=== PATIENT | male | born 1975 | race Hispanic/Latino ===

== ENCOUNTER 2017-09-13 22:44 | Emergency (ER) | payer OTHER ==
[2017-09-13 23:30] LABS: BUN/Creatinine Ratio 8; Blood Urea Nitrogen 5 mg/dL (9-20); Calcium 9.6 mg/dL (8.4-10.2); Hemolysis Index 8
[2017-09-13 23:38] LABS: Basophils # (Auto) 0.2 K/mm3 (0.0-0.1); Basophils % (Auto) 2.3 % (0.0-1.8); Eosinophils # (Auto) 0.3 K/mm3 (0.0-0.4); Eosinophils % (Auto) 3.9 % (0.0-4.3); Hematocrit 45.8 % (35.5-45.6); Hemoglobin 15.8 gm/dl (11.8-15.2); Lymphocytes # (Auto) 2.3 K/mm3 (1.2-5.4); Lymphocytes % (Auto) 28.9 % (13.4-35.0); Mean Corpuscular HGB Conc 34 % (32-34); Mean Corpuscular Hemoglobin 34 pg (28-32); Mean Corpuscular Volume 98 fl (84-94); Monocytes # (Auto) 0.4 K/mm3 (0.0-0.8); Monocytes % (Auto) 5.6 % (0.0-7.3); Platelet Count 249 K/mm3 (140-440); Red Blood Count 4.68 M/mm3 (3.65-5.03); Red Cell Distribution Width 14.4 % (13.2-15.2)
[2017-09-14 00:13] LABS: Bilirubin,Urine NEG (Negative); Blood,Urine SM (Negative); Color,Urine Yellow (Yellow); Mucus,Urine FEW /HPF; Protein,Urine <15 mg/dL mg/dL (Negative); Urobilinogen,Urine < 2.0 mg/dL (<2.0); WBC,Urine < 1.0 /HPF (0.0-6.0)
[2017-09-14 00:18] LABS: Amphetamine Screen,Urine PRESUMPTIVE NEGATIVE; Benzodiazepines Screen,Urine PRESUMPTIVE NEGATIVE; Cannabinoid Screen,Urine PRESUMPTIVE NEGATIVE; Cocaine Screen,Urine PRESUMPTIVE NEGATIVE; Methadone Screen,Urine PRESUMPTIVE NEGATIVE; Opiate Screen,Urine PRESUMPTIVE NEGATIVE
[2017-09-14] MEDS ORDERED: VITAMIN B-1 100 MG, FOLVITE 1 MG, INFUVITE 10 ML in NACL 0.9% 1000 ML 1,000 ML IV ONE (06:20)
[2017-09-14] MEDS ORDERED: LIBRIUM PO PRN (07:01)
[2017-09-14] MEDS ORDERED: ATIVAN IV PRN ×2 (07:01)
--- NOTE | 2017-09-14 07:11 | Emergency Department Report ---
HPI - General Chief Complaint: Alcohol Time Seen by Provider: 09/14/17 06:20 - HPI HPI: 42-year-old male presents to the emergency department for a medical clearance for alcohol detox from [facility]. He had his went to [facility] yesterday but they were told to come here for medical clearance. The patient has a history of alcoholism. He has never tried an inpatient detox before but says that he has tried a 3-4 day detox a few times in the past without much relief. His last drink was 4:00 yesterday. He says he does feel like he is having withdrawal symptoms including shakes/tremors, dizziness. He has a past medical history of hypertension. He denies any significant seizure history but did say that he had one seizure about 2 weeks ago with an unknown etiology. He is not currently having a primary care physician. Lately he has been on some pain medication for an injury at work. He is also on some antibiotics for an alleged infected tooth. He denies any suicidal or homicidal ideations or any hallucinations. ED Past Medical Hx - Past Medical History Hx Hypertension: Yes Hx Seizures: (1 SZ 2 weeks ago.) - Surgical History Past Surgical History?: No - Social History Smoking Status: Current Every Day Smoker Substance Use Type: Alcohol - Medications Home Medications: Home Medications Medication Instructions Recorded Confirmed Last Taken Type Sulfamethoxazole/Trimethoprim 1 each PO BID #14 tablet 09/14/17 Unknown Rx [Bactrim DS TAB] ED Review of Systems ROS: Stated complaint: MEDICAL CLEARANCE Other details as noted in HPI Comment: All other systems reviewed and negative Constitutional: denies: chills, fever Eyes: denies: eye pain, eye discharge, vision change ENT: dental pain. denies: throat pain Respiratory: denies: cough, shortness of breath, wheezing Cardiovascular: denies: chest pain, palpitations Gastrointestinal: nausea. denies: abdominal pain, diarrhea Genitourinary: denies: urgency, dysuria Musculoskeletal: denies: back pain, joint swelling, arthralgia Skin: denies: rash, lesions Neurological: other (dizziness). denies: headache Physical Exam - Physical Exam Vital Signs: Vital Signs 09/13/17 09/14/17 09/14/17 22:52 05:13 05:16 Temperature 98.5 F Pulse Rate 120 H 101 H 104 H Respiratory 20 10 L 16 Rate Blood Pressure 121/86 O2 Sat by Pulse 95 97 98 Oximetry 09/14/17 09/14/17 09/14/17 05:30 05:32 05:33 Temperature 98 F Pulse Rate 97 H Respiratory 10 L 18 Rate Blood Pressure 129/87 O2 Sat by Pulse 98 Oximetry 09/14/17 09/14/17 09/14/17 05:46 06:00 06:16 Temperature Pulse Rate 92 H 101 H 93 H Respiratory 10 L 11 L 11 L Rate Blood Pressure 129/87 129/87 129/87 O2 Sat by Pulse 97 97 97 Oximetry 09/14/17 09/14/17 06:30 06:47 Temperature 98 F Pulse Rate 95 H Respiratory 12 Rate Blood Pressure 129/87 O2 Sat by Pulse 96 Oximetry Physical Exam: GENERAL: The patient is well-developed well-nourished. HENT: Normocephalic. Atraumatic. Patient has moist mucous membranes. EYES: Extraocular motions are intact. Pupils equal reactive to light bilaterally. NECK: Supple. Trachea is midline. CHEST/LUNGS: Clear to auscultation. There is no respiratory distress noted. HEART/CARDIOVASCULAR: Regular. There is mild tachycardia. There is no murmur. ABDOMEN: Abdomen is soft, nontender. Patient has normal bowel sounds. There is no abdominal distention. SKIN: Skin is warm and dry. NEURO: The patient is awake, alert, and oriented. The patient is cooperative. The patient has no focal neurologic deficits. The patient has normal speech. MUSCULOSKELETAL: There is no tenderness or deformity. There is no limitation range of motion. There is no evidence of acute injury. ED Course Vital Signs 09/13/17 09/14/17 09/14/17 22:52 05:13 05:16 Temperature 98.5 F Pulse Rate 120 H 101 H 104 H Respiratory 20 10 L 16 Rate Blood Pressure 121/86 O2 Sat by Pulse 95 97 98 Oximetry 09/14/17 09/14/17 09/14/17 05:30 05:32 05:33 Temperature 98 F Pulse Rate 97 H Respiratory 10 L 18 Rate Blood Pressure 129/87 O2 Sat by Pulse 98 Oximetry 09/14/17 09/14/17 09/14/17 05:46 06:00 06:16 Temperature Pulse Rate 92 H 101 H 93 H Respiratory 10 L 11 L 11 L Rate Blood Pressure 129/87 129/87 129/87 O2 Sat by Pulse 97 97 97 Oximetry 09/14/17 09/14/17 06:30 06:47 Temperature 98 F Pulse Rate 95 H Respiratory 12 Rate Blood Pressure 129/87 O2 Sat by Pulse 96 Oximetry ED Medical Decision Making - Lab Data Result diagrams: 09/13/17 23:04 09/13/17 23:04 - Medical Decision Making Patient is here for medical clearance for alcohol rehabilitation and detox. He has some mild tachycardia and may be starting to have some level of withdrawals but otherwise has been calm and cooperative and stable throughout his ED course this far. He developed a small distal upper extremity tremor bilaterally and was given some Librium. The rest of his labs and unremarkable. He came in at a blood alcohol level of 0.24 at 11 PM last night and should be closer to a sober limit at this point. The psych blueprint machine operator Matt, called [facility], and they had accepted the patient and are waiting for his arrival. He is medically cleared for alcohol detox and rehabilitation. - Differential Diagnosis alcohol intoxication, alcohol withdrawal Critical Care Time: No Critical care attestation.: If time is entered above; I have spent that time in minutes in the direct care of this critically ill patient, excluding procedure time. ED Disposition Clinical Impression: Alcohol abuse, Medical clearance for psychiatric admission Alcohol intoxication Qualifiers: Complication of substance-induced condition: uncomplicated Qualified Code(s): F10.920 - Alcohol use, unspecified with intoxication, uncomplicated Alcohol withdrawal Qualifiers: Complication of substance-induced condition: uncomplicated Qualified Code(s): F10.230 - Alcohol dependence with withdrawal, uncomplicated Disposition: [id number]/[id number] PSY HOSP/PSY UNIT Is pt being admited?: No Condition: Stable Instructions: Alcohol Intoxication (ED), Abuse of Alcohol (ED), Medical Clearance for Substance Abuse Treatment (ED) Additional Instructions: Please go directly to [facility], who is expecting you for inpatient alcohol detox / rehab. See a Primary care physician once you are able to do so. Return to the Emergency Department with any worsening of your symptoms or any acute distress. Prescriptions: Sulfamethoxazole/Trimethoprim [Bactrim DS TAB] 1 each PO BID #14 tablet Referrals: PRIMARY CARE, [Primary Care Provider] - [facility] Time of Disposition: 09:50
[2017-09-14] MEDS ORDERED: TORADOL IV ONE (07:15)
[2017-09-14] MEDS: LIBRIUM PO PRN ×2 (09:15→17:16)
[2017-09-14 14:55] VITALS: BP 105/81
== END 2017-09-14 17:00 ==
LOC: ED 22:44
DX: F10.230 Alcohol dependence with withdrawal, uncomplicated (principal); I10 Essential (primary) hypertension; F17.200 Nicotine dependence, unspecified, uncomplicated; Z88.1 Allergy status to other antibiotic agents; Y90.0 Blood alcohol level of less than 20 mg/100 ml; Z88.6 Allergy status to analgesic agent; Z79.899 Other long term (current) drug therapy
CPT/HCPCS: 36415; 80048; 80307; 81001; 85025; 96365; 96366; 96375; 99285; G0480; J1885; J3411; J7030; 80320